=== PATIENT | male | born 1960 | race African-American/Black ===

== ENCOUNTER → 2018-01-11 | Outpatient (CLI) | payer MEDICARE ==
[~2018-01-11] MED LIST: ALBU6.7H INH; BUPR150T13 PO; CEPH-368 PO; CYCL-259 PO; DIVA-61 PO; LEVO125T5 PO; OXYC-306 PO; OXYC-307 PO; SERT100T5 PO; TOPI100T8 PO
== END | disposition home or self-care (01) ==
LOC: RAD 09:06
PROVIDERS: ATTEND Physician Assistant Surgical
DX: Z02.9 Encounter for administrative examinations, unspecified (principal)

== ENCOUNTER 2018-01-15 11:41 | Inpatient (IN) | payer MEDICARE, BC ==
[~2018-01-15] VITALS: Ht 203.2 cm; Wt 115.9 kg
[2018-01-15] MEDS ORDERED: SODIUM CHLORIDE 0.9% 1,000 ML IV SCH (12:43)
[2018-01-15 12:47] VITALS: BP 130/89
[2018-01-15] MEDS ORDERED: CEFAZOLIN PMX 1GM/50ML 0 ML ONE (12:52)
[2018-01-15] MEDS ORDERED: CEFAZOLIN 1,000 MG in SODIUM CHLORIDE 0.9% 50 ML IV SCH (13:00)
[2018-01-15] MEDS ORDERED: CEFAZOLIN 1,000 MG in SODIUM CHLORIDE 0.9% 50 ML IV ONE (13:30)
[2018-01-15] MEDS ORDERED: LIDOCAINE-MPF 1%, 5ML ONE ×2 (13:48→14:45)
[2018-01-15] MEDS ORDERED: FENTANYL PF 100 MCG/2ML ONE (14:02)
[2018-01-15] MEDS ORDERED: MIDAZOLAM 1 MG/ML, 5ML ONE (14:02)
[2018-01-15] MEDS ORDERED: CEFAZOLIN PMX 1GM/50ML 50 ML ONE (14:03)
[2018-01-15] MEDS ORDERED: MEPERIDINE/PF 50 MG/ML ONE ×2 (14:03→14:14)
[2018-01-15] MEDS ORDERED: FLUMAZENIL 0.1 MG/1 ML, 5ML ONE (14:03)
[2018-01-15] MEDS ORDERED: NALOXONE 1 MG/ML, 2ML ONE (14:03)
[2018-01-15] MEDS ORDERED: PROMETHAZINE 25 MG/ML, 1ML ONE (14:03)
[2018-01-15] MEDS ORDERED: OXYcodone/APAP 10/325MG TABLET ONE (16:56)
[2018-01-15] MEDS ORDERED: OXYcodone/APAP 10/325MG TABLET PO ONE ×2 (17:00→18:00)
[2018-01-15] MEDS ORDERED: DEXAMETHASONE 4 MG/ML, 1ML IVPush SCH (18:30)
[2018-01-15] MEDS ORDERED: OXYcodone IR 5MG TABLET PO PRN (18:30)
[2018-01-15] MEDS ORDERED: ACETAMINOPHEN 325 MG TABLET PO PRN (19:30)
[2018-01-15] MEDS ORDERED: BISACODYL 10 MG SUPP PR PRN (19:30)
[2018-01-15] MEDS ORDERED: POLYETHYLENE GLYCOL 17 GM PACKET PO PRN (19:30)
[2018-01-15] MEDS ORDERED: ONDANSETRON ODT 4 MG PO PRN (19:30)
[2018-01-15] MEDS: TOPIRAMATE 100 MG TABLET PO SCH (20:59)
[2018-01-15] MEDS: GABAPENTIN 300 MG CAPSULE PO SCH (20:59)
[2018-01-15] MEDS: SODIUM CHLORIDE FLUSH 10ML SYR IVF SCH (21:01)
[2018-01-15] MEDS: DIVALPROEX 500 MG TAB.ER.24H PO SCH (21:06)
[2018-01-16] MEDS: OXYcodone IR 5MG TABLET PO PRN (00:15)
[2018-01-16] MEDS: DEXAMETHASONE 4 MG/ML, 1ML IVPush SCH ×3 (00:16→11:51)
[2018-01-16 00:54] VITALS: BP 130/70
[2018-01-16 03:20] VITALS: BP 122/74
[2018-01-16] MEDS: LEVOTHYROXINE 125 MCG TABLET PO SCH (05:39)
[2018-01-16 05:52] LABS: BASOPHILS # (AUTO) 0.01 x10^3/uL (0-0.1); BASOPHILS % (AUTO) 0 % (0-1); EOSINOPHILS % (AUTO) 0 % (1-7); LYMPHOCYTES % (AUTO) 16 % (22-44); MD NO; MEAN CORPUSCULAR HEMOGLOBIN 32.4 pg (27.5-34.5); MEAN CORPUSCULAR HGB CONC 33.4 g/dL (33.2-36.2); MEAN CORPUSCULAR VOLUME 96.8 fL (81-97); MEAN PLATELET VOLUME 9.4 fL (7.4-10.4); MONOCYTES # (AUTO) 0.06 x10^3/uL (0.2-0.8); MONOCYTES % (AUTO) 2 % (2-9); NEUTROPHILS # (AUTO) 3.18 x10^3/uL (1.8-6.8); NEUTROPHILS % (AUTO) 83 % (42-75); PLATELET COUNT 147 x10^3/uL (130-400); RED CELL DISTRIBUTION WIDTH 14.9 % (9.4-14.8)
[2018-01-16 06:00] LABS: CHLORIDE 105 mmol/L (98-107)
[2018-01-16 06:05] LABS: ALANINE AMINOTRANSFERASE 21 U/L (12-78); ALKALINE PHOSPHATASE 120 U/L (45-117); ANION GAP 8 mmol/L (5-15); BILIRUBIN,TOTAL 0.6 mg/dL (0.2-1.0); CREATININE 1.14 mg/dL (0.7-1.3); TOTAL PROTEIN 8.2 g/dL (6.4-8.2)
[2018-01-16 06:53] VITALS: BP 120/86
[2018-01-16] MEDS: SENNA/DOCUSATE TABLET PO SCH (08:07)
[2018-01-16] MEDS: BUPROPION SR 150 MG TABLET PO SCH (08:07)
[2018-01-16] MEDS: SODIUM CHLORIDE FLUSH 10ML SYR IVF SCH ×2 (08:08→21:00)
[2018-01-16] MEDS: SERTRALINE 100MG TABLET PO SCH (08:08)
[2018-01-16] MEDS: GABAPENTIN 300 MG CAPSULE PO SCH ×3 (08:08→21:01)
[2018-01-16 14:48] VITALS: BP 114/76
[2018-01-16 20:09] VITALS: BP 110/74
[2018-01-16] MEDS: DIVALPROEX 500 MG TAB.ER.24H PO SCH (21:01)
[2018-01-16] MEDS: TOPIRAMATE 100 MG TABLET PO SCH (21:01)
[2018-01-17 01:59] VITALS: BP 115/74
[2018-01-17] MEDS: LEVOTHYROXINE 125 MCG TABLET PO SCH (05:17)
[2018-01-17 07:11] VITALS: BP 125/85
[2018-01-17] MEDS: SENNA/DOCUSATE TABLET PO SCH (08:57)
[2018-01-17] MEDS: SERTRALINE 100MG TABLET PO SCH (08:57)
[2018-01-17] MEDS: GABAPENTIN 300 MG CAPSULE PO SCH ×3 (08:58→21:00)
[2018-01-17] MEDS: BUPROPION SR 150 MG TABLET PO SCH (08:58)
[2018-01-17] MEDS: SODIUM CHLORIDE FLUSH 10ML SYR IVF SCH ×2 (09:00→20:57)
[2018-01-17 13:12] VITALS: BP 106/73
[2018-01-17 17:15] LABS: HEMOGLOBIN A1C 5.5 % (4.2-6.3)
[2018-01-17 19:07] VITALS: BP 100/68
[2018-01-17] MEDS: DIVALPROEX 500 MG TAB.ER.24H PO SCH (21:00)
[2018-01-17] MEDS: TOPIRAMATE 100 MG TABLET PO SCH (21:00)
[2018-01-18 02:14] VITALS: BP 111/74
[2018-01-18 05:52] LABS: ANION GAP 3 mmol/L (5-15); CALCIUM 8.5 mg/dL (8.5-10.1); CHLORIDE 105 mmol/L (98-107); CREATININE 1.25 mg/dL (0.7-1.3)
[2018-01-18] MEDS: LEVOTHYROXINE 125 MCG TABLET PO SCH (06:00)
[2018-01-18 06:16] LABS: BASOPHILS # (AUTO) 0.01 x10^3/uL (0-0.1); BASOPHILS % (AUTO) 0 % (0-1); EOSINOPHILS % (AUTO) 0 % (1-7); LYMPHOCYTES # (AUTO) 2.88 x10^3/uL (1-3.4); LYMPHOCYTES % (AUTO) 47 % (22-44); MD NO; MEAN CORPUSCULAR HEMOGLOBIN 32.7 pg (27.5-34.5); MEAN CORPUSCULAR HGB CONC 33.5 g/dL (33.2-36.2); MEAN CORPUSCULAR VOLUME 97.7 fL (81-97); MEAN PLATELET VOLUME 8.9 fL (7.4-10.4); MONOCYTES # (AUTO) 0.49 x10^3/uL (0.2-0.8); MONOCYTES % (AUTO) 8 % (2-9); NEUTROPHILS # (AUTO) 2.78 x10^3/uL (1.8-6.8); NEUTROPHILS % (AUTO) 45 % (42-75); PLATELET COUNT 179 x10^3/uL (130-400); RED BLOOD COUNT 4.08 x10^6/uL (4.38-5.82); RED CELL DISTRIBUTION WIDTH 15.3 % (9.4-14.8)
[2018-01-18 07:04] VITALS: BP 114/71
[2018-01-18] MEDS: SENNA/DOCUSATE TABLET PO SCH (09:00)
[2018-01-18] MEDS: SERTRALINE 100MG TABLET PO SCH (09:00)
[2018-01-18] MEDS: SODIUM CHLORIDE FLUSH 10ML SYR IVF SCH ×2 (09:00→20:47)
[2018-01-18] MEDS: BUPROPION SR 150 MG TABLET PO SCH (09:00)
[2018-01-18] MEDS: GABAPENTIN 300 MG CAPSULE PO SCH ×3 (09:00→20:47)
[2018-01-18] MEDS ORDERED: LIDOCAINE-MPF 1%, 5ML ONE (10:06)
[2018-01-18] MEDS ORDERED: CEFAZOLIN PMX 1GM/50ML 50 ML ONE (11:13)
[2018-01-18] MEDS ORDERED: DEXAMETHASONE 4 MG/ML, 5ML ONE (11:31)
[2018-01-18] MEDS ORDERED: PROPOFOL 10 MG/ML, 20ML ONE (11:31)
[2018-01-18] MEDS ORDERED: SUCCINYLCHOLINE 20 MG/ML, 10ML ONE (11:31)
[2018-01-18] MEDS ORDERED: ONDANSETRON 2MG/ML, 2ML ONE (11:31)
[2018-01-18] MEDS ORDERED: ROCURONIUM 10 MG/ML,10ML ONE (11:31)
[2018-01-18] MEDS ORDERED: EPHEDRINE 50 MG/ML, 1ML ONE (11:31)
[2018-01-18] MEDS ORDERED: VISIPAQUE 320MG/ML, 50ML BOTTLE ONE (12:59)
[2018-01-18] MEDS ORDERED: PROMETHAZINE 25 MG/ML, 1ML IM PRN (13:00)
[2018-01-18] MEDS ORDERED: ONDANSETRON ODT 8 MG PO PRN (13:00)
[2018-01-18] MEDS ORDERED: ONDANSETRON 2MG/ML, 2ML IV PRN (13:00)
[2018-01-18] MEDS ORDERED: HALOPERIDOL 5 MG/ML IV PRN (13:00)
[2018-01-18] MEDS ORDERED: MEPERIDINE/PF 25MG/0.5ML IVPush PRN (13:00)
[2018-01-18] MEDS ORDERED: LABETALOL 5MG/ML, 20ML IV PRN (13:00)
[2018-01-18] MEDS ORDERED: PROMETHAZINE 12.5 MG SUPP PR PRN (13:00)
[2018-01-18] MEDS ORDERED: EPHEDRINE 50 MG/ML, 1ML IVPush PRN (13:00)
[2018-01-18] MEDS ORDERED: MORPHINE SULFATE 4 MG/ML, 1ML IVPush PRN (13:00)
[2018-01-18] MEDS ORDERED: OXYcodone 5 MG/5 ML ORAL.SOL UDC PO PRN (13:00)
[2018-01-18] MEDS ORDERED: hydrALAzine 20 MG/ML, 1ML IV PRN (13:00)
[2018-01-18] MEDS ORDERED: MIDAZOLAM 1 MG/ML, 2ML IV PRN (13:00)
[2018-01-18] MEDS ORDERED: ALBUTEROL SULFATE 2.5 MG/3 ML NPPB PRN (13:00)
[2018-01-18] MEDS ORDERED: HYDROmorphone 1 MG/ML, 1ML IV PRN (13:00)
[2018-01-18] MEDS ORDERED: LORazepam 2 MG/ML, 1ML IVPush PRN (13:00)
[2018-01-18] MEDS ORDERED: ACETAMINOPHEN 325 MG TABLET PO PRN (13:00)
[2018-01-18] MEDS ORDERED: FENTANYL PF 100 MCG/2ML IV PRN (13:00)
[2018-01-18] MEDS ORDERED: OXYcodone 5 MG/5 ML ORAL.SOL UDC ONE (13:08)
[2018-01-18 14:59] VITALS: BP 124/85
[2018-01-18] MEDS: OXYcodone IR 5MG TABLET PO PRN ×2 (17:57→22:10)
[2018-01-18 18:55] VITALS: BP 99/70
[2018-01-18] MEDS: TOPIRAMATE 100 MG TABLET PO SCH (20:47)
[2018-01-18] MEDS: DIVALPROEX 500 MG TAB.ER.24H PO SCH (20:47)
[2018-01-19 00:11] VITALS: BP 126/92
[2018-01-19 04:48] VITALS: BP 123/91
[2018-01-19] MEDS: OXYcodone IR 5MG TABLET PO PRN (06:14)
[2018-01-19] MEDS: LEVOTHYROXINE 125 MCG TABLET PO SCH (06:14)
[2018-01-19 07:20] VITALS: BP 157/93
[2018-01-19] MEDS: SODIUM CHLORIDE FLUSH 10ML SYR IVF SCH (08:37)
[2018-01-19] MEDS: BUPROPION SR 150 MG TABLET PO SCH (08:37)
[2018-01-19] MEDS: GABAPENTIN 300 MG CAPSULE PO SCH (08:37)
[2018-01-19] MEDS: SENNA/DOCUSATE TABLET PO SCH (08:37)
[2018-01-19] MEDS: SERTRALINE 100MG TABLET PO SCH (08:37)
[2018-01-19] MEDS ORDERED: MORPHINE SULFATE 4 MG/ML, 1ML IVPush PRN (09:00)
== END 2018-01-19 13:40 | disposition home or self-care (01) | DRG 478 ==
LOC: OUT 11:41 → EDSTATUS 13:45 → 4NOR 18:14 → OUT 18:15 → 4NOR 18:15 → OUT 19:23 → 4NOR 19:24 → DCLOUNGE 01-19 13:27
PROVIDERS: ADMIT Hospitalist; ATTEND Hospitalist
PROC: 0Q903ZX Drainage of Lumbar Vertebra, Percutaneous Approach, Diagnostic (ICD-10-PCS; 2018-01-18)
PROC: 0QU03JZ Supplement Lumbar Vertebra with Synthetic Substitute, Percutaneous Approach (ICD-10-PCS; 2018-01-18)
PROC: 0QS03ZZ Reposition Lumbar Vertebra, Percutaneous Approach (ICD-10-PCS; principal; 2018-01-18 11:30)
DX: S32.030A Wedge compression fracture of third lumbar vertebra, initial encounter for closed fracture (principal); E44.0 Moderate protein-calorie malnutrition; R73.9 Hyperglycemia, unspecified; Z68.28 Body mass index [BMI] 28.0-28.9, adult; X58.XXXA Exposure to other specified factors, initial encounter; Y93.89 Activity, other specified; Y92.89 Other specified places as the place of occurrence of the external cause; Y99.8 Other external cause status
CPT/HCPCS: 22514; 36415; 72131; 72148; 80048; 80053; 83036; 85025; 99156; 99157; G0378; J0690; J1100; J2175; J2250; J2270; J2405; J2550; J2704; J3010; Q9967; 22511; J0330; J2310; J7030